=== PATIENT | female | born 2005 | race Two or more races ===

== ENCOUNTER 2025-05-21 14:56 | Emergency (ER) | payer OTHER ==
[~2025-05-21] VITALS: Ht 162.6 cm; Wt 119.7 kg
[2025-05-21] MEDS ORDERED: ONDANSETRON 4 MG TAB.RAPDIS ONE (15:34)
[2025-05-21] MEDS: ONDANSETRON 4 MG TAB.RAPDIS SL ONE (15:37)
[2025-05-21 15:44] LABS: PLATELET COUNT (AUTO) 285 K/uL (150-450); RED BLOOD CELL COUNT(AUTO) 5.05 MIL/uL (4.0-5.2); RED CELL DISTRIBUTION WIDTH 13.0 % (11.5-15.0); WHITE BLOOD COUNT (AUTO) 15.7 K/uL (4.3-11.0)
[2025-05-21 15:53] LABS: CALCIUM, SERUM 8.8 mg/dL (8.5-10.1); CREATININE 0.8 mg/dL (0.6-1.3); SODIUM SERUM 139.0 mmol/L (136-145); UREA NITROGEN, BLOOD 17.0 mg/dL (7-18)
[2025-05-21 16:06] LABS: PREGNANCY TEST SERUM QUAN 0.0 mIU/mL (0-6)
[2025-05-21] MEDS: IV NS 0.9% 1,000 ML BAG IV ONE (16:10)
[2025-05-21 16:45] LABS: APPEARANCE,URINE CLEAR (CLEAR); BLOOD, URINE NEGATIVE Ery/uL (NEGATIVE); LEUKOCYTE ESTERASE ,URINE NEGATIVE (NEGATIVE); NITRITE, URINE NEGATIVE (NEGATIVE); UGLUCOSE NEGATIVE (NEGATIVE)
[2025-05-21 16:58] LABS: SQUAMOUS EPITHELIAL CELL,UR Moderate /HPF (None Seen)
[2025-05-21 16:59] LABS: ADD URINE CULTURE NO
[2025-05-21] MEDS ORDERED: ACETAMINOPHEN 325 MG TABLET ONE (17:00)
[2025-05-21] MEDS: ACETAMINOPHEN 325 MG TABLET PO ONE (17:04)
[2025-05-21] MEDS ORDERED: ONDA4TAB5 PO (17:18)
[2025-05-21] MEDS ORDERED: ACET325C7 PO (17:18)
[2025-05-21 17:22] VITALS: BP 118/61; TEMP 98.1; O2SAT 97
== END 2025-05-21 17:23 | disposition home or self-care (01) ==
LOC: ER 15:20
DX: R55 Syncope and collapse (principal); R20.0 Anesthesia of skin; R11.0 Nausea; R10.20 Pelvic and perineal pain unspecified side; J45.909 Unspecified asthma, uncomplicated
CPT/HCPCS: 99284; 96360; 93005; 85025; 80048; 81001; 36415; 84702; J7030; Q0162